=== PATIENT | female | born 1965 ===

== ENCOUNTER 2017-12-11 07:42 | Day surgery (SDC) | payer MEDICAID ==
[2017-12-08 11:54] VITALS: BMI 26.4
[2017-12-11] MEDS ORDERED: Bupivacaine 0.25% 20 ML INJ IJ ONE (12:23)
[2017-12-11] MEDS ORDERED: ceFAZolin IV 1 gm in Dextrose 1 GM/50 ML BAG IVPB ONE (12:23)
[2017-12-11] MEDS ORDERED: Lidocaine/Epinephrine 1% 1:100000 10 ML IJ ONE (12:23)
[2017-12-11] MEDS ORDERED: Propofol 10 mg/ml Inj (20 ML) ONE (12:26)
[2017-12-11] MEDS ORDERED: Midazolam 2 MG/2 ML VIAL ONE (12:28)
--- NOTE | 2017-12-11 13:16 | PCM.SURG1 ---
Surgeon's Initial Post Op Note - Surgeon's Notes Surgeon: Dr. Bautista Founder / Ceo: Zacarias Sandoval PGY1 Type of Anesthesia: IV Sedation, Local Pre-Operative Diagnosis: Sebaceous Cyst on posterior scalp Operative Findings: sebaceous cyst Post-Operative Diagnosis: same Operation Performed: excision of sebaceous cyst of posterior scalp Specimen/Specimens Removed: sebaceous cyst plus capsule Estimated Blood Loss: EBL {In ML}: 2 Blood Products Given: N/A Drains Used: No Drains Post-Op Condition: Good Date of Surgery/Procedure: 12/11/17 Time of Surgery/Procedure: 13:16
[2017-12-11] MEDS ORDERED: Oxycodone/Acetaminophen 5/325 mg Tab PO PRN (13:18)
[2017-12-11] MEDS ORDERED: HYDROmorphone 0.5 mg/0.5 ml ISec IVP PRN (13:20)
[2017-12-11 14:21] VITALS: BP 132/68; PULSE 68; RESP 18; TEMP 97; O2SAT 100
--- NOTE | 2017-12-12 23:38 | OP ---
PROCEDURE DATE: 12/11/2017 PREOPERATIVE DIAGNOSES: Posterior scalp lesion, possible lipoma, possible sebaceous cyst. POSTOPERATIVE DIAGNOSES: Sebaceous cyst of posterior scalp approximately 2 cm x 2 cm size. PROCEDURES DONE: 1. Excision of the sebaceous cyst of the posterior scalp. 2. Layered closure of the wound 3 cm x 2 cm x 2 cm size. ANESTHESIA ADMINISTERED BY: Local anesthesia plus sedation. ESTIMATED BLOOD LOSS: Around 10 mL. DRAINS: None. PATHOLOGY: Sebaceous cyst with cyst wall was sent for pathology. COMPLICATIONS: None. INTRAOPERATIVE FINDINGS: The patient had approximately 2 cm x 2 cm sebaceous cyst of the posterior scalp. DESCRIPTION OF PROCEDURE: On intraoperative steps, this 52-year-old female was diagnosed with posterior scalp lesion, possible lipoma, possible sebaceous cyst, and the patient was consented for excision and brought to the OR, placed in right leg position. The posterior scalp area was prepped and draped in the usual sterile fashion and local anesthesia was injected after sedation and incision was made after incising skin and subcutaneous tissue and sebaceous cyst was identified. Upper and lower flap was dissected and the sebaceous cyst was completely excised and it was handed off the table for the pathology. The cyst content started draining and after complete removal of the cyst wall, the wound was irrigated totally. Hemostasis was well achieved and the wound was closed in multiple layers. The deep subcutaneous with 2-0, 3-0 Vicryl and the skin with 4-0 Monocryl and another layer of the skin with 4-0 nylon interrupted suture and dry sterile dressing was applied. The patient tolerated the procedure well. Count of the instrument and gauze was correct. There was no apparent complication. The patient was reversed from sedation and sent to the Postanesthesia Care Unit in stable condition. Pawel Bautista MD
== END 2017-12-11 15:49 | disposition home or self-care (01) ==
LOC: C.SDS 07:42
PROVIDERS: ATTEND Surgery Surgical Critical Care
DX: L72.3 Sebaceous cyst (principal); I10 Essential (primary) hypertension; E11.65 Type 2 diabetes mellitus with hyperglycemia; M10.9 Gout, unspecified; E78.5 Hyperlipidemia, unspecified; K21.9 Gastro-esophageal reflux disease without esophagitis; R32 Unspecified urinary incontinence; Z72.0 Tobacco use; F32.9 Major depressive disorder, single episode, unspecified; F41.9 Anxiety disorder, unspecified; Z98.890 Other specified postprocedural states; Z90.710 Acquired absence of both cervix and uterus; Z79.899 Other long term (current) drug therapy
CPT/HCPCS: 11423; 12032; 88305; J0690; J2250; J2704; J3010